=== PATIENT | male | born 1935 | race Caucasian/White ===

== ENCOUNTER → 2018-10-22 | Outpatient (CLI) | payer OTHER, BC ==
[~2018-10-22] VITALS: Ht 175.3 cm; Wt 85.7 kg
[~2018-10-22] MED LIST: AMLODIPINE BESY10 MG PO; APAP650 PO; ATORVASTATIN CA40 MG PO; CYMBALTA60 MG PO; OMEPRAZOLE 20 M20 M1 PO; TUMS PO
[2018-10-22 09:01] LABS: HEMATOCRIT 41.2 % (42.0-52.0); HEMOGLOBIN 13.8 gm/dL (14.0-18.0); MCH 29.4 pg (26.0-34.0); MCHC 33.4 g/dL (28.0-37.0); RBC 4.68 mil/uL (4.50-6.00); RDW 13.8 % (10.5-14.5); WBC 5.5 thou/uL (4.0-11.0)
[2018-10-22 09:04] LABS: URINE BILIRUBIN NEGATIVE (Negative); URINE BLOOD NEGATIVE (Negative); URINE CLARITY CLEAR; URINE COLOR YELLOW; URINE GLUCOSE-RANDOM* NEGATIVE (Negative); URINE KETONES NEGATIVE (Negative); URINE LEUKOCYTES-REFLEX NEGATIVE (Negative); URINE NITRITE-REFLEX NEGATIVE (Negative); URINE PROTEIN (DIPSTICK) TRACE (Negative); URINE UROBILINOGEN 0.2 E.U./dl (0.2-1.0)
[2018-10-22 09:30] LABS: ALBUMIN 4.3 g/dL (3.4-5.0); CALCIUM 10.6 mg/dL (8.5-10.1); CREATININE 1.9 mg/dL (0.7-1.3); POTASSIUM 4.4 mmol/L (3.5-5.1); TOTAL BILIRUBIN 0.9 mg/dL (<0.1-1.0); TOTAL PROTEIN 7.4 g/dL (6.4-8.2)
--- NOTE | 2018-10-22 14:11 | EKG ---
[place] [address] [facility] [place] [address] ELECTROCARDIOGRAM REPORT Name: NENITA LOCKETT JR Room #: PRE IN M.R.#: [id number] ������������������ Admission: ������������������ Attend Phys: Milan Saldivar MD Discharge: ������������������ Date of : 39 Report #: [id number] ����������������������������������������������������������������� [id number] THIS REPORT FOR: //name// [facility] Test Date: 2018-10-22 Test Time: 08:55:03 Pat Name: NENITA LOCKETT Department: Room: Gender: Director Professional Services: brennan : 1935 Requested By: Milan Saldivar Order Number: [id number] MD: Jaison Louie Measurements Intervals [place] Rate: 53 P: 44 KS: 191 QRS: 30 QRSD: 110 T: 54 QT: 427 QTc: 401 Interpretive Statements Sinus rhythm Borderline low voltage, extremity leads No previous ECG available for comparison Electronically Signed On 10-22-2018 14:10:46 CDT by Jaison Louie [email or web address] ��������������������������������������������� <ELECTRONICALLY SIGNED> ���������������������������������������� By: Jaison Louie MD ��������������������������������������������� 10/22/18 1410 0855 0855 Jaison Louie MD /CHRISTIANNE
== END ==
LOC: PAC 08:45 → PRE 11-05 05:34 → EDSTATUS 11-26 08:41 → PRE 11-26 11:44
PROVIDERS: Orthopaedic Surgery
DX: I12.9 Hypertensive chronic kidney disease with stage 1 through stage 4 chronic kidney disease, or unspecified chronic kidney disease (principal); N18.9 Chronic kidney disease, unspecified; M17.12 Unilateral primary osteoarthritis, left knee

== ENCOUNTER → 2021-08-04 | Day surgery (SDC) | payer OTHER, BC ==
[~2021-08-04] VITALS: Ht 167.6 cm; Wt 81.6 kg
[~2021-08-04] MED LIST changes: -ATORVASTATIN CA40 MG PO; +IPRAT-ALBUT 0.5-3 ML INH; +LIPITOR40 MG PO; +PROAIR HFA8.5 GM INH; +VITAMIN D350 MCG PO
--- NOTE | ~2021-08-04 | O ---
[facility] [place] [address] OPERATIVE REPORT Name: NENITA LOCKETT JR Room #: REG [facility] M.R.#: [id number] Admission: 08/04/21 Attend Phys: Scot Zapata MD Discharge: Date of : 39 Report #: [id number] THIS REPORT FOR: cc: Raul Neely MD, David R. MD Franey, Thomas A. MD ~ cc: Raul Neely MD DATE OF SERVICE: 08/04/2021 PREOPERATIVE DIAGNOSIS: Right inguinal hernia. POSTOPERATIVE DIAGNOSIS: Right inguinal hernia. PROCEDURE: Right inguinal hernia repair with Prolene hernia system mesh. SURGEON: Scot Zapata MD ANESTHESIA USED: Local IV sedation. DESCRIPTION OF PROCEDURE: The patient was brought to the operating room and placed on the operating table in the supine position. Sequential compression devices were in place for DVT prophylaxis. There is no indication for preoperative antibiotics. The patient underwent IV sedation. Right inguinal area was then prepped and draped in a sterile fashion. Skin and subcutaneous tissue were then infiltrated with 0.5% Marcaine, 1% Xylocaine with epinephrine. Right inguinal skin incision was then performed using #10 scalpel blade. Hemostasis obtained using the electrocautery. Dissection was carried down through subcutaneous tissue, the external oblique fascia, which was then incised with a knife and opened with the Metzenbaum scissors. The ilioinguinal nerve was identified, dissected free, injected with a local mixture and preserved. The cord was then elevated and held in place with Harsha drain. Cremasteric muscle fibers were then split in the direction of the fibers using clamp and electrocautery. An indirect inguinal hernia sac was identified, dissected free, injected with a local mixture and reduced back into the preperitoneal space. The preperitoneal space was then developed using blunt dissection. An extended Prolene hernia system mesh was then inserted through the internal ring and the underlay patch was then deployed in the preperitoneal space. Connector was left in the internal ring and the overlay patch then deployed into the inguinal canal. The mesh was secured to the pubic tubercle, superiorly and at the connector using simple interrupted 2-0 Vicryl sutures. The mesh was then split and wrapped around the cord and secured to the inguinal ligament with simple interrupted 2-0 Vicryl suture. The cord and ilioinguinal nerve were then returned to the canal intact. The external oblique fascia was then closed using running 2-0 Vicryl suture. Ginette's fascia was then reapproximated using 3 simple interrupted 2-0 chromic sutures and the skin then closed with a running [facility] [address] [place] [address] OPERATIVE REPORT Name: NENITA LOCKETT JR [id number] Admission: 08/04/21 Attend Phys: Scot Zapata MD Discharge: Date of : 39 Report #: [id number] 4-0 subcuticular Vicryl stitch. The wound was then dressed with Mastisol, 1/2-inch Steri-Strips cut in half, Telfa, 4 x 4 gauze, sponge, and tape. The patient was then awakened from the IV sedation, awake, alert and was taken to the recovery room in good condition. Estimated blood loss was less than 10 mL and the patient tolerated the procedure well. All sponge, lap and instrument counts were correct x2. By: 0859 [id number] Scot Zapata MD /nt
[2021-08-04 07:21] LABS: CALCIUM 9.9 mg/dL (8.5-10.1); CREATININE 1.9 mg/dL (0.7-1.3); POTASSIUM 4.8 mmol/L (3.5-5.1)
[2021-08-04 07:27] LABS: TOTAL BILIRUBIN 1.1 mg/dL (0.2-1.0); TOTAL PROTEIN 6.7 g/dL (6.4-8.2)
--- NOTE | 2021-08-04 07:52 | EKG ---
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 08/04/21 [phone] Ajith Quezada MD, FACC /EPI
[2021-08-04 08:05] VITALS: BP 122/61
--- NOTE | 2021-08-04 10:00 | H ---
[facility] [place] [address] HISTORY AND PHYSICAL Name: NENITA LOCKETT JR Room #: REG [facility] M.R.#: [id number] Admission: 08/04/21 Attend Phys: Scot Zapata MD Discharge: Date of : 39 Report #: [id number] THIS REPORT FOR: cc: Raul Neely MD, David R. MD Franey, Thomas A. MD ~ cc: Raul Neely MD DATE OF SERVICE: 08/03/2021 CHIEF COMPLAINT: "Knot in my right groin." HISTORY OF PRESENT ILLNESS: The patient is an 86-year-old white male who stated a couple months ago, he noticed a knot in his right groin. It is causing some discomfort. He has no previous history of any hernias. He denies any changes in bowel or bladder habits. His last colonoscopy was in 2006. He saw his primary care physician, Dr. Raul Neely, who recommended surgical consultation for his right groin bulge. PAST MEDICAL HISTORY: Hyperlipidemia, hypertension, stage III chronic kidney disease, degenerative joint disease, history of gout, history of prostate carcinoma diagnosed in 2010, allergic rhinitis, hyperlipidemia, anxiety, depression, gastroesophageal reflux disease, history of a skin cancer on the nose and forehead, removed in April 2016. MEDICATIONS: Benadryl, Tylenol, amlodipine 10 mg p.o. every day, atorvastatin 40 mg p.o. every day, duloxetine 60 mg p.o. every day, omeprazole 20 mg p.o. daily, Flonase 1 spray every day, vitamin D3, allopurinol, ipratropium, albuterol q. 6 hours. ALLERGIES: PENICILLIN CAUSES A RASH. FAMILY HISTORY: Noncontributory. SOCIAL HISTORY: The patient quit smoking in 1980. Does not drink alcohol. He is retired. REVIEW OF SYSTEMS: Pertinent positives as above. Full review of systems otherwise negative. PHYSICAL EXAMINATION: GENERAL: This is a well-developed, well-nourished white male in no acute distress. VITAL SIGNS: Stable. He is afebrile. Height 68 inches, weight is 180 pounds, BMI of 27.3. HEENT: Sclerae are nonicteric. Mucous membranes moist and pink. [facility] [address] [place] [address] HISTORY AND PHYSICAL Name: NENITA LOCKETT JR Room #: REG [facility].#: [id number] Admission: 08/04/21 Attend Phys: Scot Zapata MD Discharge: Date of : 39 Report #: [id number] NECK: There is no adenopathy. LUNGS: Clear to auscultation bilaterally. Normal excursion. HEART: Regular rate and rhythm. No murmurs, S3 or S4. Normal PMI. ABDOMEN: Soft, flat, nontender, no palpable masses, no organomegaly. There is a healed low vertical midline abdominal incision scar. GENITOURINARY: Normal scrotum, phallus and testes. There is a visible palpable right inguinal hernia, which is partially reducible. It is tender. EXTREMITIES: No clubbing, cyanosis or edema. NEUROLOGICAL: Intact with a clear mental status. No focal motor or sensory deficits. ASSESSMENT AND PLAN: An 86-year-old white male with a right inguinal hernia. I fully discussed with the patient the diagnosis, prognosis and treatment options and the risks and benefits of each. He states he understands and agrees to proposed surgery. Plan will perform a right inguinal hernia repair with mesh under local IV sedation as an outpatient at [facility]. The procedure, its risks, benefits and possible complications including the use of mesh, fully discussed with the patient. He states he understands and agrees to proposed surgery. <ELECTRONICALLY SIGNED> By: Scot Zapata MD 08/04/21 1000 1132 1146 Scot Zapata MD /nt
[2021-08-04 10:01] VITALS: BP 122/61
== END | disposition home or self-care (01) ==
LOC: OR 05:46
PROVIDERS: ATTEND Surgery
DX: K40.90 Unilateral inguinal hernia, without obstruction or gangrene, not specified as recurrent (principal); I12.0 Hypertensive chronic kidney disease with stage 5 chronic kidney disease or end stage renal disease; E78.5 Hyperlipidemia, unspecified; M19.90 Unspecified osteoarthritis, unspecified site; F32.9 Major depressive disorder, single episode, unspecified; F41.9 Anxiety disorder, unspecified; K21.9 Gastro-esophageal reflux disease without esophagitis; Z98.890 Other specified postprocedural states; Z79.899 Other long term (current) drug therapy; Z20.822 Contact with and (suspected) exposure to COVID-19; Z85.828 Personal history of other malignant neoplasm of skin; Z85.46 Personal history of malignant neoplasm of prostate; Z87.891 Personal history of nicotine dependence
CPT/HCPCS: 50010; 50101; 50386; 50403; 56524; 56526; 56528; 58646; 62110; 62850; 70005